=== PATIENT | female | born 1960 | race Caucasian/White ===

== ENCOUNTER 2017-07-21 17:57 | Emergency (ER) | payer OTHER ==
[2017-07-21 18:21] VITALS: O2SAT 99
[2017-07-21] MEDS ORDERED: Vancomycin 1GM/ Ns 250ML*** 1 GM/250 ML IVPB IV ONE (18:38)
[2017-07-21] MEDS ORDERED: Vancomycin 1GM/ Ns 250ML*** 250 ML IV ONE (18:44)
--- NOTE | 2017-07-21 18:44 | ERPHSYRPT ---
- History of Present Illness Source: patient Exam Limitations: no limitations Patient Subjective Stated Complaint: pt states she has increased swelling in left foot. states she is to have surgery soon for a diabetic ulcer. states she has been treated for osteomylitis in left foot. Triage Nursing Assessment: pt pink, warm, dry. pulse heard with dopplar. left foot has 2 plus pitting edema. quarter size wound noted to lateral left foot. Method of Injury: direct blow Occurred: days ago Quality: constant Severity of Pain-Max: mild Severity of Pain-Current: mild Lower Extremities Pain: 5th toe: left Modifying Factors: Improves With: nothing Associated Symptoms: none Hx Tetanus, Diphtheria Vaccination/Date Given: Yes (up to date) Hx Influenza Vaccination/Date Given: Yes Hx Pneumococcal Vaccination/Date Given: No Immunizations Up to Date: Yes <GENIE BEAVERS - Last Filed: 07/21/17 18:51> <PRADEEP PHILIP - Last Filed: 07/21/17 19:45> - History of Present Illness Time Seen by Provider: 07/21/17 18:39 Physician History: 56 y/o female with history of DM and recently diagnosed osteomyelitis of the left 5th metatarsal on 07/04 comes to the ER after accidently hitting her left foot in a jacuzzi on Monday. Pt states that her primary care doctor has scheduled surgery for her osteomyelitis but pt has not been on any antibiotics. Pt states that since the injury, she has been having increasing pain, drainage, and subjective fever/chills. In January of this year, patient had osteomyelitis of the right foot and was on Vancomycin for 3 weeks. Pt describes the pain as aching, constant, 4/10, worse with movement and not relieved by advil. ( GENIE BEAVERS) Allergies/Adverse Reactions: codeine [Codeine] Allergy (Mild, Verified 07/21/17 18:21) fentanyl [From Duragesic] Allergy (Mild, Verified 07/21/17 18:21) levofloxacin [From Levaquin] Allergy (Mild, Verified 07/21/17 18:21) morphine Allergy (Mild, Verified 07/21/17 18:21) Penicillins Allergy (Mild, Verified 07/21/17 18:21) Home Medications: Furosemide 20 mg [Lasix 20 mg] 20 mg PO DAILY 10/08/12 [History] Methadone HCl [Methadose] 40 mg PO TID 10/08/12 [History] Potassium Chloride 10 Meq Tab* [Klor Con 10 MEQ] 10 meq PO DAILY 07/21/17 [ History] Zinc 100 mg PO DAILY 07/21/17 [History] - Review of Systems Constitutional: No Fever, No Chills Eyes: No Symptoms Ears, Nose, & Throat: No Symptoms Respiratory: No Cough, No Dyspnea Cardiac: No Chest Pain, No Edema, No Syncope Abdominal/Gastrointestinal: No Abdominal Pain, No Nausea, No Vomiting, No Diarrhea Genitourinary Symptoms: No Dysuria Musculoskeletal: Arthralgias, Joint Redness, Joint Pain, Joint Swelling, No Back Pain, No Neck Pain Skin: No Rash Neurological: No Dizziness, No Focal Weakness, No Sensory Changes Psychological: No Symptoms Endocrine: No Symptoms All Other Systems: Reviewed and Negative <GENIE BEAVERS - Last Filed: 07/21/17 18:51> - Past Medical History Pertinent Past Medical History: Yes Respiratory History: Bronchitis Endocrine Medical History: Diabetes Type II Musculoskeletal History: Fibromyalgia - Past Surgical History Past Surgical History: Yes Gastrointestinal: Cholecystectomy Female Surgical History: Hysterectomy - Social History Smoking Status: Current every day smoker How long have you smoked: 33 Exposure to second hand smoke: No Drug Use: none Patient Lives Alone: No <GENIE BEAVERS - Last Filed: 07/21/17 18:51> - Physical Exam General Appearance: alert Eyes, Ears, Nose, Throat Exam: moist mucous membranes Neck Exam: non-tender, supple Cardiovascular/Respiratory Exam: chest non-tender, normal breath sounds, regular rate/rhythm, no respiratory distress Gastrointestinal/Abdominal Exam: non-tender, guarding Back Exam: normal inspection, No vertebral tenderness Hips Exam: bilateral: non-tender, normal inspection, normal range of motion Legs Exam: bilateral leg: non-tender, normal inspection, normal range of motion Knees Exam: bilateral knee: non-tender, normal inspection, normal range of motion Ankle Exam: bilateral ankle: non-tender, normal inspection, normal range of motion Foot Exam: left foot: ecchymosis, infection, limited range of motion, pain, soft tissue tenderness, swelling Neuro/Tendon Exam: normal sensation, normal motor functions Mental Status Exam: alert, oriented x 3, cooperative Skin Exam: normal color, warm, dry SpO2: 99 Oxygen Delivery: Room Air <BEAVERS,NOAH - Last Filed: 07/21/17 18:51> - Nursing Vital Signs Nursing Vital Signs: Initial Vital Signs Temperature 99.3 F 07/21/17 18:02 Pulse Rate 80 07/21/17 18:02 Respiratory Rate 18 07/21/17 18:02 Blood Pressure 103/55 07/21/17 18:02 O2 Sat by Pulse Oximetry 99 07/21/17 18:02 Pain Scale Pain Intensity 5 - Radiology Exams left foot X-ray Interpretation: Interpreted by me (bony destruction distal 5th MT) <PRADEEP PHILIP - Last Filed: 07/21/17 19:45> Ordered Tests: Active Orders 24 hr Category Date Time Status IV Insertion STAT Care 07/21/17 18:35 Active FOOT (MINIMUM 3 VIEWS) Stat Exams 07/21/17 Taken BLOOD CULTURE Stat Lab 07/21/17 18:59 Received CBC W DIFF Stat Lab 07/21/17 18:59 Completed CMP Stat Lab 07/21/17 18:59 Received ESR [Erythrocyte Sedimentation Rate] Stat Lab 07/21/17 19:21 Received Lactic Acid Stat Lab 07/21/17 19:35 Ordered Medication Summary Generic Name Dose Route Start Last Admin Trade Name Freq PRN Reason Stop Dose Admin Vancomycin HCl 1 gm in 250 mls @ 167 mls/hr 07/21/17 18:38 07/21/17 18:46 Vancomycin 1gm/ Ns 250ml IV 07/21/17 20:07 167 mls/hr STAT ONE Administration Ertapenem 1 g/ Sodium Chloride 100 mls @ 200 mls/hr 07/21/17 19:34 IV 07/21/17 20:03 STAT STA Discontinued Medications Generic Name Dose Route Start Last Admin Trade Name Freq PRN Reason Stop Dose Admin Vancomycin HCl Confirm 07/21/17 18:44 Vancomycin 1gm/ Ns 250ml Administered 07/21/17 18:45 Dose 250 mls @ ud IV .STK-MED ONE Morphine Sulfate 2 mg 07/21/17 18:45 07/21/17 18:47 Morphine Sulfate 2 Mg Inj IV 07/21/17 18:46 2 mg STAT ONE Administration Morphine Sulfate Confirm 07/21/17 18:47 Morphine Sulfate 2 Mg Inj Administered 07/21/17 18:48 Dose 2 mg .ROUTE .STK-MED ONE Lab/Rad Data: Laboratory Result Diagrams 07/21/17 18:59 Laboratory Results 07/21/17 Range/Units 18:59 WBC 8.5 (4.0-10.5) K/mm3 RBC 3.84 L (4.1-5.4) M/mm3 Hgb 10.1 L (12.0-16.0) gm/dl Hct 32.2 L (35-47) % MCV 83.9 (78-100) fl MCH 26.3 (26-32) pg MCHC 31.4 L (32-36) g/dl RDW 13.5 (11.5-14.0) % Plt Count 377 (150-450) K/mm3 MPV 9.3 (6-9.5) fl Gran % 64.1 (36.0-66.0) % Lymphocytes % 25.9 (24.0-44.0) % Monocytes % 7.3 (0.0-12.0) % Eosinophils % 2.2 (0.00-5.0) % Basophils % 0.5 (0.0-0.4) % Basophils # 0.04 (0-0.4) <GENIE BEAVERS - Last Filed: 07/21/17 18:51> - Progress Counseled pt/family regarding: lab results, diagnosis, need for follow-up, rad results <PRADEEP PHILIP - Last Filed: 07/21/17 19:45> - Progress Progress Note: 07/21/17 19:42 The patient was initially seen per Dr Iniguez. She has hx of diabetes and foot infections. Has seen Dr Verdugo and is scheduled for abtx bead placement later this month. Has not been on recent abtx. Teanus updated 2 years ago. She bumped the left foot this week on a hot tub and it now is open and draining. She has chills. PE: Foul smelling left foot with lateral wound distal. Some swelling and redness. 07/21/17 19:[address] Verdugo who advised he will arrange transfer to [facility] under hospitalist and his podiatry care as patient will need surgical debridement. IV Vanc and Invanz started here. (PRADEEP PHILIP) <GENIE BEAVERS - Last Filed: 07/21/17 18:51> - Departure Time of Disposition: 19:44 Departure Disposition: Transfer ([facility] Dr Verdugo) Critical Care Time: No <PRADEEP PHILIP - Last Filed: 07/21/17 19:45> - Departure Clinical Impression: Osteomyelitis of left foot Qualifiers: Osteomyelitis type: subacute Qualified Code(s): M86.272 - Subacute osteomyelitis, left ankle and foot Condition: Stable
[2017-07-21] MEDS ORDERED: MORPHINE SULFATE 2 MG INJ IV ONE (18:45)
[2017-07-21] MEDS ORDERED: MORPHINE SULFATE 2 MG INJ ONE (18:47)
[2017-07-21 19:04] LABS: BASOPHIL % 0.5 % (0.0-0.4); Eosinophil % 2.2 % (0.00-5.0); Granulocytes % 64.1 % (36.0-66.0); Lymphocytes % 25.9 % (24.0-44.0); Mean Cell Volume 83.9 fl (78-100); Mean Corpuscular Hemoglobin 26.3 pg (26-32); Mean Platelet Volume 9.3 fl (6-9.5); Monocytes % 7.3 % (0.0-12.0); Platelet Count 377 K/mm3 (150-450); Red Blood Count 3.84 M/mm3 (4.1-5.4); Red Cell Distribution Width 13.5 % (11.5-14.0); White Blood Count 8.5 K/mm3 (4.0-10.5)
[2017-07-21 19:25] LABS: ALBUMIN 3.5 g/dL (3.4-5.0); ANION GAP 10.6 MEQ/L (5-15); BILIRUBIN,TOTAL 0.2 mg/dL (0.2-1.0); Carbon Dioxide 30.8 mEq/L (21-32); Potassium 4.1 mEq/L (3.5-5.1); Total Protein 8.4 gm/dL (6.4-8.2)
[2017-07-21] MEDS ORDERED: Invanz 1 GM*** 1 G in Sodium Chloride 100ML MINI-BAG PLUS 100 ML IV STA (19:34)
[2017-07-21 20:40] VITALS: BP 134/77; PULSE 78
--- NOTE | 2017-07-22 08:28 | XRAY ---
Indication: Open wound adjacent to 5th metatarsal. History of diabetes. Comparison: None 3 nonweightbearing views of the right foot demonstrate soft tissue wound/ulcer lateral to the head of the 5th metatarsal with underlying bony erosion favoring osteomyelitis. 5th metatarsal head slightly subluxed laterally. Small plantar heel spur. No other bony, articular, or soft tissue abnormalities.
== END 2017-07-21 21:20 | disposition short-term general hospital (02) ==
LOC: ED 17:57
DX: M86.272 Subacute osteomyelitis, left ankle and foot (principal)
CPT/HCPCS: 36000; 36415; 73630; 80053; 85025; 85652; 87040; 96365; 96366; 96367; 96374; 99285; J1335; J2270; J3370

== ENCOUNTER 2020-10-29 08:16 | Day surgery (SDC) | payer OTHER ==
[~2020-10-29 08:16] MED LIST: CLINDAMYCIN-D5W 900 MG/50 ML*** 900 MG/50 ML BAG IV ONE; Lactated Ringers 1,000 ML IV ONE; Lactated Ringers 1,000 ML IV SCH; XYLOCAINE 1% HCL 20 ML MDV ONE
[2020-10-29] MEDS ORDERED: CLINDAMYCIN-D5W 900 MG/50 ML*** 900 MG/50 ML BAG IV SCH (09:00)
[2020-10-29] MEDS ORDERED: Versed 2 MG/2 ML Injection ONE ×2 (09:06→10:06)
[2020-10-29] MEDS ORDERED: Versed 2 MG/2 ML Injection IV ONE (09:15)
[2020-10-29] MEDS ORDERED: DIPRIVAN 200 MG/20 ML IV ONE (10:06)
[2020-10-29] MEDS ORDERED: SUBLIMAZE 100 MCG/2 ML ONE (10:06)
--- NOTE | 2020-10-29 11:02 | HP ---
DATE OF SURGERY: 10/29/2020 ANTICIPATED PROCEDURE: Port-A-Cath placement. HISTORY OF PRESENT ILLNESS: The patient presents for Port-A-Cath placement for continued mcc IV usage. She was seen and examined in the office, procedure discussed and she wished to proceed. PAST MEDICAL HISTORY: ALLERGIES: PENICILLIN. SULFA. LEVAQUIN. FENTANYL. CODEINE. MEDICATIONS: Pepcid, Lasix, gabapentin, insulin, methadone, potassium, Ozempic, Ambien. PAST SURGICAL HISTORY: None recent. SOCIAL HISTORY: On methadone. FAMILY HISTORY: Negative. REVIEW OF SYSTEMS: Adult onset diabetes. Pulmonary negative. PHYSICAL EXAMINATION: VITAL SIGNS: Normal. CHEST: Clear. COR: Regular. IMPRESSION: A patient requiring mcc IV usage and presents for Port-A-Cath. PLAN: Port-A-Cath placement.
--- NOTE | 2020-10-29 11:08 | OP ---
SURGERY DATE/TIME: 10/29/2020 1008 PREOPERATIVE DIAGNOSIS: Inadequate access for technician terminal and repeater IV medicine. POSTOPERATIVE DIAGNOSIS: Inadequate access for longterm IV medicine. PROCEDURE: Tunnel port with fluoroscopic C-arm guidance left subclavian-superior vena cava atrial junction. SURGEON: Rohith Jeronimo M.D. OIL RIGGER: Sanjana Arnold, Resident [facility] II. ANESTHESIA: MAC. COMPLICATIONS: None. CONDITION: Stable. INDICATION: A patient requiring access. DESCRIPTION OF PROCEDURE: Routine prep and drape. Venipuncture obtained. Guide wire placed. Catheter is placed. Good aspiration of low pressure venous blood. Flushed and secured. Secured with 3-0 Prolene, 3-0 Vicryl, 4-0 Vicryl and Steri-Strips. The tip was in the superior vena cava atrial junction ready to use. No pneumothorax.
--- NOTE | 2020-10-29 11:10 | XRAY ---
Indication: Port placement. Intraoperative fluoroscopy was provided for 4 seconds. Single digital spot image demonstrates incompletely visualized left Port-A-Cath with tip projecting over the SVC. Correlate with intraoperative findings/report.
[2020-10-29] MEDS ORDERED: Hydromorphone 1 mg/ml Injection ONE (11:11)
[2020-10-29 12:26] VITALS: O2SAT 97
[2020-10-29 12:28] VITALS: BP 142/79; PULSE 79
== END 2020-10-29 12:00 | disposition home or self-care (01) ==
LOC: SDC 08:16
PROVIDERS: ATTEND Surgery
DX: Z45.2 Encounter for adjustment and management of vascular access device (principal); E11.9 Type 2 diabetes mellitus without complications; Z79.899 Other long term (current) drug therapy
CPT/HCPCS: 77001; 82947; C1788; J1170; J1642; J2250; J2704; J3010